=== PATIENT | male | born 1990 | race Caucasian/White ===

== ENCOUNTER 2018-11-23 15:10 | Emergency (ER) | payer SELFPAY ==
[~2018-11-23] VITALS: Ht 170.2 cm; Wt 77.3 kg
[2018-11-23 15:28] VITALS: BP 132/75; Ht 170.2 cm; Wt 77.3 kg
== END 2018-11-23 19:32 | disposition home or self-care (01) ==
LOC: D.ER 15:10
DX: S61.211A Laceration without foreign body of left index finger without damage to nail, initial encounter (principal); W26.9XXA Contact with unspecified sharp object(s), initial encounter; Y93.H2 Activity, gardening and landscaping; Y92.017 Garden or yard in single-family (private) house as the place of occurrence of the external cause